=== PATIENT | male | born 1995 | race African-American/Black ===

== ENCOUNTER 2018-02-20 00:58 | Emergency (ER) | payer SELFPAY ==
[~2018-02-20] VITALS: Ht 180.3 cm; Wt 82.0 kg
[2018-02-20] MEDS ORDERED: SODIUM CHLORIDE 0.9% 1,000 ML IV ONE (01:25)
[2018-02-20] MEDS ORDERED: ACETAMINOPHEN 325MG TABLET PO STA (01:25)
[2018-02-20 02:02] LABS: EOSINOPHILS % 0.8 % (0.0-5.0); HEMATOCRIT. 42.6 % (42.0-52.0); LYMPHOCYTES % 29.7 % (20.0-50.0); MEAN CORPUSCULAR HEMOGLOBIN 26.8 pg (28.0-32.0); MEAN CORPUSCULAR VOLUME 81.7 fL (80.0-94.0); MEAN PLATELET VOLUME 8.1 fl (7.4-10.4); NEUTROPHILS % 58.5 % (40.0-76.0); PLATELET 319 x1000/uL (130-400); RED BLOOD CELL COUNT 5.21 mill/uL (4.7-6.1); RED CELL DISTRIBUTION WIDTH 14.2 % (11.6-14.6)
[2018-02-20 02:04] LABS: CHLORIDE 105 mEq/L (98-107)
[2018-02-20 03:58] VITALS: BP 120/69
== END 2018-02-20 03:58 | disposition home or self-care (01) ==
LOC: ER 00:58
DX: R51 Headache (principal); M54.89 Other dorsalgia; M54.2 Cervicalgia; R50.9 Fever, unspecified; J34.89 Other specified disorders of nose and nasal sinuses; Z86.61 Personal history of infections of the central nervous system; J45.909 Unspecified asthma, uncomplicated
CPT/HCPCS: 36415; 71045; 80053; 85025; 99285; J7030; Z7610